=== PATIENT | female | born 1935 | race Two or more races ===

== ENCOUNTER 2024-06-09 14:59 | Inpatient (IN) | payer MEDICAID ==
[~2024-06-09] VITALS: Ht 152.4 cm; Wt 65.8 kg
[2024-06-09 15:26] LABS: BASOPHILS # (AUTO) 0.1 K/UL (0.0-0.2); BASOPHILS % (AUTO) 0.7 % (0.0-2.0); DIFFERENTIAL COMMENT 0; EOSINOPHILS # (AUTO) 0.3 K/uL (0.0-0.7); EOSINOPHILS % (AUTO) 2.3 % (0.0-7.0); HEMATOCRIT 28.8 % (36.7-47.1); HEMOGLOBIN 9.4 g/dL (12.5-16.3); LYMPHOCYTES # (AUTO) 1.9 K/uL (0.8-4.8); LYMPHOCYTES % (AUTO) 16.2 % (20.5-51.5); MEAN CORPUSCULAR HEMOGLOBIN 27.9 uug (23.8-33.4); MEAN CORPUSCULAR HGB CONC 33 g/dL (32.5-36.3); MEAN CORPUSCULAR VOLUME 85.6 fL (73.0-96.2); MONOCYTES # (AUTO) 1.7 K/uL (0.1-1.30); MONOCYTES % (AUTO) 14.2 % (0.0-11.0); NEUTROPHILS # (AUTO) 7.8 K/uL (1.8-8.9); NEUTROPHILS % (AUTO) 66.6 % (38.5-71.5); PLATELET COUNT (AUTO) 285 K/uL (152-348); RED BLOOD CELL COUNT(AUTO) 3.36 MIL/uL (4.06-5.63); RED CELL DISTRIBUTION WIDTH 14.3 % (12.1-16.2); WHITE BLOOD COUNT (AUTO) 11.7 K/uL (3.6-10.2)
[2024-06-09] MEDS ORDERED: methylPREDNISolone SOD SUCC 125 MG/2 ML VIAL ONE (15:37)
[2024-06-09 15:41] LABS: CARBON DIOXIDE 24 mmol/L (21-32); CHLORIDE 108 mmol/L (98-107); CREATININE 1.1 mg/dL (0.6-1.3); GLUCOSE 181 mg/dL (74-106); POTASSIUM 4.3 mmol/L (3.5-5.1); SODIUM SERUM 143 mmol/L (136-145); UREA NITROGEN, BLOOD 23 mg/dL (7-18)
[2024-06-09] MEDS: methylPREDNISolone SOD SUCC 125 MG/2 ML VIAL IV ONE (15:41)
[2024-06-09 15:50] LABS: ALANINE AMINOTRANSFERASE 19 U/L (16-63); ALBUMIN 3.3 g/dL (3.4-5.0); ALKALINE PHOSPHATASE 71 U/L (50-136); ASPARTATE AMINOTRANSFERASE 13 U/L (15-37); BILIRUBIN,DIRECT 0.2 mg/dL (0.0-0.2); BILIRUBIN,TOTAL 0.4 mg/dL (0.2-1.0); NT-PRO BNP 2736 pg/mL (0-125); TOTAL PROTEIN, SERUM 7.1 g/dL (6.4-8.2)
[2024-06-09] MEDS: CIPROFLOXACIN IV 400 MG in PREMIXED 1 EACH IV ONE (16:00)
[2024-06-09] MEDS ORDERED: CIPROFLOXACIN IV 200 ML IV ONE (16:07)
[2024-06-09] MEDS: levoFLOXacin 750 MG/D5W 150 ML PIGGYBACK IV ONE (16:22)
[2024-06-09] MEDS ORDERED: REMEDY ESSENTIAL ZINC PASTE 113 GM TP PRN (17:30)
[2024-06-09] MEDS ORDERED: MAGNESIUM HYDROXIDE 30 ML LIQUID UDC PO PRN (17:30)
[2024-06-09] MEDS ORDERED: ONDANSETRON 4 MG/2 ML VIAL IV PRN (17:30)
[2024-06-09 21:42] VITALS: BP 126/57; TEMP 98; O2SAT 99
[2024-06-09] MEDS: methylPREDNISolone SOD SUCC 125 MG/2 ML VIAL IV SCH (21:43)
[2024-06-09] MEDS ORDERED: levoFLOXacin 500 MG/D5W 100 ML ONE (22:00)
[2024-06-09] MEDS: levoFLOXacin 500 MG/D5W 100 ML IV ONE (22:27)
[2024-06-10 00:20] VITALS: BP 121/57; TEMP 98; O2SAT 96
[2024-06-10 04:13] VITALS: BP 120/60; TEMP 98.3; O2SAT 97
[2024-06-10 06:48] LABS: BASOPHILS % (AUTO) 0.1 % (0.0-2.0); HEMOGLOBIN 9.4 g/dL (10.9-14.3); LYMPHOCYTES # (AUTO) 0.3 K/uL (0.8-4.8); LYMPHOCYTES % (AUTO) 4.5 % (20.5-51.5); MEAN CORPUSCULAR HEMOGLOBIN 28.4 uug (24.7-32.8); MEAN CORPUSCULAR HGB CONC 33 g/dL (32.3-35.6); MEAN CORPUSCULAR VOLUME 85.1 fL (75.5-95.3); MONOCYTES # (AUTO) 0.1 K/uL (0.1-1.30); MONOCYTES % (AUTO) 1.4 % (0.0-11.0); NEUTROPHILS # (AUTO) 6.9 K/uL (1.8-8.9); PLATELET COUNT (AUTO) 293 K/uL (179-408); RED BLOOD CELL COUNT(AUTO) 3.29 MIL/uL (3.63-4.92); RED CELL DISTRIBUTION WIDTH 14.2 % (12.3-17.7); WHITE BLOOD COUNT (AUTO) 7.3 K/uL (3.8-11.8)
[2024-06-10 07:10] LABS: DIFFERENTIAL COMMENT 1
[2024-06-10 07:12] LABS: CARBON DIOXIDE 23 mmol/L (21-32); CHLORIDE 104 mmol/L (98-107); CREATININE 1.8 mg/dL (0.6-1.3); GLUCOSE 265 mg/dL (74-106); PHOSPHOROUS 4.3 mg/dL (2.5-4.9); POTASSIUM 5.3 mmol/L (3.5-5.1); SODIUM SERUM 136 mmol/L (136-145); UREA NITROGEN, BLOOD 37 mg/dL (7-18)
[2024-06-10 07:33] LABS: CALCIUM 7.8 mg/dL (8.5-10.1)
[2024-06-10] MEDS: ACETAMINOPHEN 325 MG TABLET PO PRN (10:36)
[2024-06-10] MEDS ORDERED: DICL75TA5 PO (11:46)
[2024-06-10] MEDS ORDERED: LOSA100T31 PO (11:46)
[2024-06-10] MEDS ORDERED: AMLO-212 PO (11:46)
[2024-06-10] MEDS ORDERED: ALEN70TA3 PO (11:46)
[2024-06-10] MEDS ORDERED: SERT50TA PO (11:46)
[2024-06-10] MEDS ORDERED: HYDR-894 PO (11:46)
[2024-06-10] MEDS ORDERED: FURO40TA5 PO (11:46)
[2024-06-10] MEDS ORDERED: ASPI81TA31 PO (11:46)
[2024-06-10] MEDS ORDERED: levoFLOXacin 500 MG/D5W 500 MG in PREMIXED 1 EACH IV SCH (16:00)
[2024-06-10] MEDS: CIPROFLOXACIN IV 400 MG in PREMIXED 1 EACH IV SCH (16:13)
[2024-06-10 16:56] LABS: CALCIUM 7.3 mg/dL (8.5-10.1); CARBON DIOXIDE 22 mmol/L (21-32); CHLORIDE 105 mmol/L (98-107); CREATININE 2.1 mg/dL (0.6-1.3); GLUCOSE 383 mg/dL (74-106); POTASSIUM 5.9 mmol/L (3.5-5.1); SODIUM SERUM 139 mmol/L (136-145); UREA NITROGEN, BLOOD 49 mg/dL (7-18)
[2024-06-10] MEDS: hydrALAZINE HCL 25 MG TABLET PO SCH (17:35)
[2024-06-10] MEDS: ASPIRIN 81 MG TAB.CHEW PO SCH (17:35)
[2024-06-10] MEDS: AMLODIPINE 5 MG TABLET PO SCH (17:35)
[2024-06-10] MEDS: LOSARTAN POTASSIUM 50 MG TABLET PO SCH (17:35)
[2024-06-10] MEDS ORDERED: FUROSEMIDE 40 MG TABLET PO SCH (18:00)
[2024-06-10 19:30] VITALS: BP 125/62; TEMP 98.3; O2SAT 95
[2024-06-10 22:02] VITALS: BP 125/62; TEMP 98.3; O2SAT 95
[2024-06-11] VITALS (12 sets, daily range): BP systolic 109–133; BP diastolic 42–65; TEMP 97.9–98.9; O2SAT 95–99
[2024-06-11 07:25] LABS: BASOPHILS % (AUTO) 0.1 % (0.0-2.0); HEMATOCRIT 27.2 % (31.2-41.9); HEMOGLOBIN 9.1 g/dL (10.9-14.3); LYMPHOCYTES # (AUTO) 0.4 K/uL (0.8-4.8); MEAN CORPUSCULAR HEMOGLOBIN 28.6 uug (24.7-32.8); MEAN CORPUSCULAR HGB CONC 34 g/dL (32.3-35.6); MEAN CORPUSCULAR VOLUME 85.5 fL (75.5-95.3); MONOCYTES # (AUTO) 0.2 K/uL (0.1-1.30); MONOCYTES % (AUTO) 2.3 % (0.0-11.0); NEUTROPHILS # (AUTO) 8.7 K/uL (1.8-8.9); NEUTROPHILS % (AUTO) 93.6 % (38.5-71.5); PLATELET COUNT (AUTO) 326 K/uL (179-408); RED BLOOD CELL COUNT(AUTO) 3.19 MIL/uL (3.63-4.92); RED CELL DISTRIBUTION WIDTH 14.1 % (12.3-17.7); WHITE BLOOD COUNT (AUTO) 9.3 K/uL (3.8-11.8)
[2024-06-11 07:42] LABS: DIFFERENTIAL COMMENT 1
[2024-06-11 07:44] LABS: ALANINE AMINOTRANSFERASE 20 U/L (14-59); ALKALINE PHOSPHATASE 68 U/L (50-136); ASPARTATE AMINOTRANSFERASE 6 U/L (15-37); BILIRUBIN,TOTAL 0.3 mg/dL (0.2-1.0); CALCIUM 7.5 mg/dL (8.5-10.1); CARBON DIOXIDE 23 mmol/L (21-32); CHLORIDE 105 mmol/L (98-107); CREATININE 1.8 mg/dL (0.6-1.3); GLUCOSE 241 mg/dL (74-106); MAGNESIUM 3.1 mg/dL (1.8-2.4); PHOSPHOROUS 4.6 mg/dL (2.5-4.9); POTASSIUM 5.3 mmol/L (3.5-5.1); SODIUM SERUM 139 mmol/L (136-145); TOTAL PROTEIN, SERUM 7.3 g/dL (6.4-8.2); UREA NITROGEN, BLOOD 55 mg/dL (7-18)
[2024-06-11 08:13] LABS: CREATINE KINASE, TOTAL 59 U/L (26-192)
[2024-06-11] MEDS: ALENDRONATE SODIUM 70 MG TABLET PO SCH (08:13)
[2024-06-11 08:45] LABS: *BILIRUBIN,URIN NEGATIVE (NEGATIVE); *BLOOD, URINE NEGATIVE (NEGATIVE); *CLARITY,URINE CLEAR (CLEAR); *COLOR,URINE YELLOW (YELLOW); *KETONES,URINE NEGATIVE (NEGATIVE); *PROTEIN,URINE 1+ (NEGATIVE); *URINE TOTAL PROTEIN RANDOM 44.7 mg/dL (<150/24HR); *UROBILINOGEN,URINE 0.2 E.U./dl (NORMAL); LEUKOCYTE ESTERASE ,URINE NEGATIVE (NEGATIVE); NITRITE, URINE NEGATIVE (NEGATIVE); UGLUCOSE NEGATIVE (NEGATIVE)
[2024-06-11 08:46] LABS: BACTERIA,URINE FEW /HPF (NONE SEEN); SQUAMOUS EPITHELIAL CELL,UR FEW /HPF (NONE SEEN); WBC,URINE 0-3 /HPF (0-3)
[2024-06-11] MEDS ORDERED: Medication Not On Formulary EA (Losartan Potassium 100 MG) PO SCH (09:00)
[2024-06-11] MEDS: GUAIFENESIN SUGAR FREE 100 MG/5 ML UDC PO PRN (10:37)
[2024-06-11] MEDS: SODIUM POLYSTYRENE SULFONATE 15 G/60 ML LIQUID UDC PO ONE (10:37)
[2024-06-11] MEDS: IPRATROPIUM BROMIDE 0.5 MG/2.5 ML NEBU NEB SCH (11:06)
[2024-06-11] MEDS: ALBUTEROL SULFATE 2.5 MG/3 ML NEBU NEB SCH (11:06)
[2024-06-11] MEDS ORDERED: SODIUM ZIRCONIUM CYCLOSILICATE 10 GM POWD.PACK PO ONE (11:30)
[2024-06-12] VITALS (14 sets, daily range): BP systolic 114–122; BP diastolic 52–59; TEMP 97.5–98.7; O2SAT 93–99
[2024-06-12 05:57] LABS: ABG BASE EXCESS -4.8 mmol/L (-2.0-3.0); ABG HCO3 19.4 mmol/L (21.0-28.0); ABG PCO2 32.2 mmHg (32.0-45.0); ABG PH 7.397 (7.350-7.450); ABG PO2 83.3 mmHg (83.0-108.0); ABG SITE RIGHT RADIAL; ABG TOTAL HEMOGLOBIN 9.5 G/dL (12.0-16.0); AaDO2 96.3 mmHg; COHb 0.3 % (0.5-1.5); MetHb 0.5 % (0.0-1.5); O2Hb 95.1 % (94.0-98.0)
[2024-06-12 07:00] LABS: BASOPHILS % (AUTO) 0.1 % (0.0-2.0); HEMATOCRIT 26.7 % (31.2-41.9); HEMOGLOBIN 8.9 g/dL (10.9-14.3); LYMPHOCYTES # (AUTO) 0.3 K/uL (0.8-4.8); LYMPHOCYTES % (AUTO) 3.4 % (20.5-51.5); MEAN CORPUSCULAR HEMOGLOBIN 28.5 uug (24.7-32.8); MEAN CORPUSCULAR HGB CONC 34 g/dL (32.3-35.6); MEAN CORPUSCULAR VOLUME 85.2 fL (75.5-95.3); MONOCYTES # (AUTO) 0.2 K/uL (0.1-1.30); MONOCYTES % (AUTO) 2.2 % (0.0-11.0); NEUTROPHILS # (AUTO) 7.8 K/uL (1.8-8.9); NEUTROPHILS % (AUTO) 94.3 % (38.5-71.5); PLATELET COUNT (AUTO) 336 K/uL (179-408); RED BLOOD CELL COUNT(AUTO) 3.13 MIL/uL (3.63-4.92); RED CELL DISTRIBUTION WIDTH 14.4 % (12.3-17.7); WHITE BLOOD COUNT (AUTO) 8.3 K/uL (3.8-11.8)
[2024-06-12 07:12] LABS: DIFFERENTIAL COMMENT 1
[2024-06-12 07:16] LABS: CALCIUM 6.9 mg/dL (8.5-10.1); CARBON DIOXIDE 23 mmol/L (21-32); CHLORIDE 103 mmol/L (98-107); GLUCOSE 303 mg/dL (74-106); PHOSPHOROUS 5.6 mg/dL (2.5-4.9); POTASSIUM 4.2 mmol/L (3.5-5.1); SODIUM SERUM 138 mmol/L (136-145); UREA NITROGEN, BLOOD 72 mg/dL (7-18)
[2024-06-12] MEDS: IV NS 1000 ML 1,000 ML IV ONE (10:55)
[2024-06-12] MEDS: methylPREDNISolone SOD SUCC 125 MG/2 ML VIAL IV SCH (13:08)
[2024-06-13] VITALS (18 sets, daily range): BP systolic 119–144; BP diastolic 54–70; TEMP 97.4–98.9; O2SAT 94–100
[2024-06-13 07:25] LABS: HEMOGLOBIN 9.5 g/dL (10.9-14.3); LYMPHOCYTES # (AUTO) 0.3 K/uL (0.8-4.8); LYMPHOCYTES % (AUTO) 3.3 % (20.5-51.5); MEAN CORPUSCULAR HEMOGLOBIN 28.8 uug (24.7-32.8); MEAN CORPUSCULAR HGB CONC 34 g/dL (32.3-35.6); MEAN CORPUSCULAR VOLUME 85.1 fL (75.5-95.3); MONOCYTES # (AUTO) 0.3 K/uL (0.1-1.30); MONOCYTES % (AUTO) 3.6 % (0.0-11.0); NEUTROPHILS # (AUTO) 7.2 K/uL (1.8-8.9); NEUTROPHILS % (AUTO) 93.1 % (38.5-71.5); PLATELET COUNT (AUTO) 345 K/uL (179-408); RED BLOOD CELL COUNT(AUTO) 3.29 MIL/uL (3.63-4.92); RED CELL DISTRIBUTION WIDTH 14.2 % (12.3-17.7); WHITE BLOOD COUNT (AUTO) 7.7 K/uL (3.8-11.8)
[2024-06-13 07:38] LABS: DIFFERENTIAL COMMENT 1
[2024-06-13 07:48] LABS: CALCIUM 6.6 mg/dL (8.5-10.1); CARBON DIOXIDE 23 mmol/L (21-32); CHLORIDE 104 mmol/L (98-107); CREATININE 1.6 mg/dL (0.6-1.3); GLUCOSE 376 mg/dL (74-106); MAGNESIUM 3.1 mg/dL (1.8-2.4); PHOSPHOROUS 5.2 mg/dL (2.5-4.9); POTASSIUM 3.7 mmol/L (3.5-5.1); SODIUM SERUM 139 mmol/L (136-145); UREA NITROGEN, BLOOD 66 mg/dL (7-18)
[2024-06-13 08:06] LABS: PTH, INTACT 115 pg/mL (15-65)
[2024-06-13] MEDS: FUROSEMIDE 40 MG/4 ML VIAL IV ONE (11:58)
[2024-06-13 13:11] LABS: ALBUMIN 3.2 g/dL (2.9-4.4); ALPHA-1-GLOBULIN 0.4 g/dL (0.0-0.4); BETA GLOBULIN 0.9 g/dL (0.7-1.3); GAMMA GLOBULIN 0.9 g/dL (0.4-1.8); GLOBULIN, TOTAL 3.1 g/dL (2.2-3.9); M-SPIKE Not Observed g/dL (Not Observed); PROTEIN, TOTAL 6.3 g/dL (6.0-8.5)
[2024-06-13] MEDS: levoFLOXacin 750 MG TABLET PO ONE (16:03)
[2024-06-13] MEDS: methylPREDNISolone SOD SUCC 40 MG/ML VIAL IV SCH (20:35)
[2024-06-13] MEDS ORDERED: methylPREDNISolone SOD SUCC 125 MG/2 ML VIAL IV SCH (21:00)
[2024-06-14] VITALS (14 sets, daily range): BP systolic 128–143; BP diastolic 56–69; TEMP 97.7–98.2; O2SAT 92–99
[2024-06-14] MEDS: ALBUTEROL SULFATE 2.5 MG/3 ML NEBU NEB PRN (01:20)
[2024-06-14 06:52] LABS: BASOPHILS % (AUTO) 0.1 % (0.0-2.0); HEMATOCRIT 29.3 % (31.2-41.9); HEMOGLOBIN 9.8 g/dL (10.9-14.3); LYMPHOCYTES # (AUTO) 0.2 K/uL (0.8-4.8); LYMPHOCYTES % (AUTO) 1.5 % (20.5-51.5); MEAN CORPUSCULAR HEMOGLOBIN 28.3 uug (24.7-32.8); MEAN CORPUSCULAR HGB CONC 33 g/dL (32.3-35.6); MEAN CORPUSCULAR VOLUME 84.8 fL (75.5-95.3); MONOCYTES # (AUTO) 0.6 K/uL (0.1-1.30); MONOCYTES % (AUTO) 3.9 % (0.0-11.0); NEUTROPHILS # (AUTO) 13.9 K/uL (1.8-8.9); NEUTROPHILS % (AUTO) 94.5 % (38.5-71.5); PLATELET COUNT (AUTO) 378 K/uL (179-408); RED BLOOD CELL COUNT(AUTO) 3.46 MIL/uL (3.63-4.92); RED CELL DISTRIBUTION WIDTH 14.1 % (12.3-17.7); WHITE BLOOD COUNT (AUTO) 14.7 K/uL (3.8-11.8)
[2024-06-14 07:07] LABS: CALCIUM 6.8 mg/dL (8.5-10.1); CARBON DIOXIDE 23 mmol/L (21-32); CHLORIDE 101 mmol/L (98-107); CREATININE 1.7 mg/dL (0.6-1.3); PHOSPHOROUS 4.2 mg/dL (2.5-4.9); POTASSIUM 3.7 mmol/L (3.5-5.1); SODIUM SERUM 139 mmol/L (136-145); UREA NITROGEN, BLOOD 68 mg/dL (7-18)
[2024-06-14 07:11] LABS: DIFFERENTIAL COMMENT 1
[2024-06-14 07:31] LABS: GLUCOSE 401 mg/dL (74-106)
[2024-06-14] MEDS: methylPREDNISolone SOD SUCC 40 MG/ML VIAL IV SCH (08:26)
[2024-06-14] MEDS: SERTRALINE HCL 50 MG TABLET PO PRN (09:10)
[2024-06-14 11:12] LABS: BAND % (MANUAL) 1 % (0-10); LYMPHOCYTES % (MANUAL) 2 % (20-40); MONOCYTES % (MANUAL) 5 % (2-10); MYELOCYTES % 1 % (0-0); NEUTROPHILS % (MANUAL) 91 % (42-75); PLATELET ESTIMATE ADEQUATE
[2024-06-14] MEDS ORDERED: DEXTROSE 50% 50 ML DISP.SYRIN IV PRN (12:00)
[2024-06-14] MEDS ORDERED: levoFLOXacin 750MG/D5W 750 MG in PREMIXED 1 EACH IV SCH (12:00)
[2024-06-14] MEDS: BLOOD SUGAR DIAGNOSTIC 1 EACH STRIP VI SCH (12:07)
[2024-06-14] MEDS: INSULIN REGULAR, HUMAN 1000 UNIT/10 ML VIAL SQ PRN (12:10)
[2024-06-14] MEDS: FUROSEMIDE 40 MG/4 ML VIAL IV ONE (12:21)
[2024-06-14] MEDS: CIPROFLOXACIN IV 400 MG in PREMIXED 1 EACH IV SCH (13:15)
[2024-06-14 20:06] LABS: ADENOVIRUS Not Detected (Not Detected); CORONAVIRUS 229E Not Detected (Not Detected); CORONAVIRUS HKU1 Not Detected (Not Detected); CORONAVIRUS NL63 Not Detected (Not Detected); CORONAVIRUS OC43 Not Detected (Not Detected); NP BORDETELLA PERTUSIS Not Detected (Not Detected); NP CHLAMYDOPHILA PNEUMONIAE Not Detected (Not Detected); NP HUMAN METAPNEUMOVIRUS Not Detected (Not Detected); NP HUMAN RHINO/ENTERO VIRUS Not Detected (Not Detected); NP INFLUENZA A Not Detected (Not Detected); NP INFLUENZA A/H1 Not Detected (Not Detected); NP INFLUENZA A/H1-2009 Not Detected (Not Detected); NP INFLUENZA A/H3 Not Detected (Not Detected); NP INFLUENZA B Not Detected (Not Detected); NP MYCOPLASMA PNEUMONIAE Not Detected (Not Detected); NP PARAINFLUENZA 1 Not Detected (Not Detected); NP PARAINFLUENZA 2 Not Detected (Not Detected); NP PARAINFLUENZA 3 Not Detected (Not Detected); NP PARAINFLUENZA 4 Not Detected (Not Detected); NP RESPIRATORY SYNCYTIAL VIRUS Not Detected (Not Detected)
[2024-06-15] VITALS (13 sets, daily range): BP systolic 107–136; BP diastolic 49–90; TEMP 98.2–98.8; O2SAT 92–99
[2024-06-15 07:33] LABS: BASOPHILS % (AUTO) 0.1 % (0.0-2.0); EOSINOPHILS % (AUTO) 0.1 % (0.0-7.0); HEMATOCRIT 28.5 % (31.2-41.9); HEMOGLOBIN 9.7 g/dL (10.9-14.3); LYMPHOCYTES # (AUTO) 0.5 K/uL (0.8-4.8); LYMPHOCYTES % (AUTO) 3.1 % (20.5-51.5); MEAN CORPUSCULAR HGB CONC 34 g/dL (32.3-35.6); MONOCYTES # (AUTO) 0.8 K/uL (0.1-1.30); MONOCYTES % (AUTO) 4.9 % (0.0-11.0); NEUTROPHILS # (AUTO) 14.6 K/uL (1.8-8.9); NEUTROPHILS % (AUTO) 91.8 % (38.5-71.5); PLATELET COUNT (AUTO) 362 K/uL (179-408); RED BLOOD CELL COUNT(AUTO) 3.35 MIL/uL (3.63-4.92); RED CELL DISTRIBUTION WIDTH 14.7 % (12.3-17.7); WHITE BLOOD COUNT (AUTO) 15.9 K/uL (3.8-11.8)
[2024-06-15] MEDS ORDERED: IPRATROPIUM BROMIDE 0.5 MG/2.5 ML NEBU ONE (07:45)
[2024-06-15] MEDS ORDERED: ALBUTEROL SULFATE 2.5 MG/3 ML NEBU ONE (07:45)
[2024-06-15 07:51] LABS: CALCIUM 6.7 mg/dL (8.5-10.1); CARBON DIOXIDE 24 mmol/L (21-32); CHLORIDE 105 mmol/L (98-107); CREATININE 1.7 mg/dL (0.6-1.3); GLUCOSE 213 mg/dL (74-106); MAGNESIUM 3.3 mg/dL (1.8-2.4); PHOSPHOROUS 5.7 mg/dL (2.5-4.9); SODIUM SERUM 139 mmol/L (136-145); UREA NITROGEN, BLOOD 74 mg/dL (7-18)
[2024-06-15 08:12] LABS: DIFFERENTIAL COMMENT 1
[2024-06-15 10:09] LABS: *BILIRUBIN,URIN NEGATIVE (NEGATIVE); *BLOOD, URINE NEGATIVE (NEGATIVE); *CLARITY,URINE CLEAR (CLEAR); *COLOR,URINE YELLOW (YELLOW); *KETONES,URINE NEGATIVE (NEGATIVE); *PROTEIN,URINE TRACE (NEGATIVE); *UROBILINOGEN,URINE 0.2 E.U./dl (NORMAL); LEUKOCYTE ESTERASE ,URINE NEGATIVE (NEGATIVE); NITRITE, URINE NEGATIVE (NEGATIVE); UGLUCOSE NEGATIVE (NEGATIVE)
[2024-06-15] MEDS ORDERED: levoFLOXacin 750 MG TABLET PO ONE (16:00)
[2024-06-15] MEDS ORDERED: levoFLOXacin 500 MG TABLET PO SCH (16:00)
[2024-06-15 16:27] LABS: ANISOCYTOSIS 1+; HYPOCHROMASIA 1+; LYMPHOCYTES % (MANUAL) 2 % (20-40); MONOCYTES % (MANUAL) 4 % (2-10); NEUTROPHILS % (MANUAL) 94 % (42-75); PLATELET ESTIMATE ADEQUATE
[2024-06-15] MEDS: methylPREDNISolone SOD SUCC 40 MG/ML VIAL IV SCH (21:25)
[2024-06-15] MEDS: INSULIN REGULAR, HUMAN 300 UNITS/3 ML VIAL SQ PRN (21:32)
[2024-06-16] VITALS (21 sets, daily range): BP systolic 118–135; BP diastolic 49–59; TEMP 98.1–99; O2SAT 89–99
[2024-06-16 06:59] LABS: BASOPHILS % (AUTO) 0.2 % (0.0-2.0); HEMATOCRIT 24.9 % (31.2-41.9); HEMOGLOBIN 8.6 g/dL (10.9-14.3); LYMPHOCYTES # (AUTO) 0.5 K/uL (0.8-4.8); MEAN CORPUSCULAR HEMOGLOBIN 29.1 uug (24.7-32.8); MEAN CORPUSCULAR HGB CONC 35 g/dL (32.3-35.6); MEAN CORPUSCULAR VOLUME 84.3 fL (75.5-95.3); MONOCYTES # (AUTO) 0.5 K/uL (0.1-1.30); NEUTROPHILS # (AUTO) 10.7 K/uL (1.8-8.9); NEUTROPHILS % (AUTO) 91.8 % (38.5-71.5); PLATELET COUNT (AUTO) 307 K/uL (179-408); RED BLOOD CELL COUNT(AUTO) 2.96 MIL/uL (3.63-4.92); RED CELL DISTRIBUTION WIDTH 14.4 % (12.3-17.7); WHITE BLOOD COUNT (AUTO) 11.6 K/uL (3.8-11.8)
[2024-06-16 07:11] LABS: DIFFERENTIAL COMMENT 1
[2024-06-16 07:12] LABS: CALCIUM 6.4 mg/dL (8.5-10.1); CARBON DIOXIDE 26 mmol/L (21-32); CHLORIDE 106 mmol/L (98-107); CREATININE 1.5 mg/dL (0.6-1.3); GLUCOSE 222 mg/dL (74-106); MAGNESIUM 3.3 mg/dL (1.8-2.4); PHOSPHOROUS 5.7 mg/dL (2.5-4.9); POTASSIUM 4.3 mmol/L (3.5-5.1); SODIUM SERUM 142 mmol/L (136-145)
[2024-06-16 07:22] LABS: UREA NITROGEN, BLOOD 83 mg/dL (7-18)
[2024-06-16] MEDS: FUROSEMIDE 40 MG/4 ML VIAL IV ONE (08:06)
[2024-06-16 10:51] LABS: LYMPHOCYTES % (MANUAL) 4 % (20-40); MONOCYTES % (MANUAL) 4 % (2-10); NEUTROPHILS % (MANUAL) 92 % (42-75); PLATELET ESTIMATE ADEQUATE
[2024-06-16] MEDS: predniSONE 20 MG TABLET PO SCH (17:24)
[2024-06-17] VITALS (19 sets, daily range): BP systolic 99–126; BP diastolic 45–62; TEMP 97.9–98.5; O2SAT 94–100
[2024-06-17 07:08] LABS: CARBON DIOXIDE 24 mmol/L (21-32); CHLORIDE 105 mmol/L (98-107); CREATININE 1.5 mg/dL (0.6-1.3); GLUCOSE 224 mg/dL (74-106); MAGNESIUM 3.1 mg/dL (1.8-2.4); PHOSPHOROUS 5.6 mg/dL (2.5-4.9); POTASSIUM 4.2 mmol/L (3.5-5.1); SODIUM SERUM 140 mmol/L (136-145)
[2024-06-17 07:12] LABS: BASOPHILS % (AUTO) 0.1 % (0.0-2.0); LYMPHOCYTES # (AUTO) 0.7 K/uL (0.8-4.8); LYMPHOCYTES % (AUTO) 5.1 % (20.5-51.5); MEAN CORPUSCULAR HEMOGLOBIN 28.2 uug (24.7-32.8); MEAN CORPUSCULAR HGB CONC 33 g/dL (32.3-35.6); MEAN CORPUSCULAR VOLUME 84.5 fL (75.5-95.3); MONOCYTES # (AUTO) 0.8 K/uL (0.1-1.30); MONOCYTES % (AUTO) 5.8 % (0.0-11.0); NEUTROPHILS # (AUTO) 12.9 K/uL (1.8-8.9); PLATELET COUNT (AUTO) 282 K/uL (179-408); RED CELL DISTRIBUTION WIDTH 14.6 % (12.3-17.7); WHITE BLOOD COUNT (AUTO) 14.5 K/uL (3.8-11.8)
[2024-06-17 07:22] LABS: DIFFERENTIAL COMMENT 1; HEMATOCRIT 19.1 % (31.2-41.9); HEMOGLOBIN 6.4 g/dL (10.9-14.3); RED BLOOD CELL COUNT(AUTO) 2.26 MIL/uL (3.63-4.92)
[2024-06-17 07:27] LABS: UREA NITROGEN, BLOOD 99 mg/dL (7-18)
[2024-06-17] MEDS: PANTOPRAZOLE SODIUM 40 MG VIAL IV SCH (09:52)
[2024-06-17 10:34] LABS: HEMATOCRIT 19.4 % (31.2-41.9); HEMOGLOBIN 6.4 g/dL (10.9-14.3)
[2024-06-17 14:41] LABS: BAND % (MANUAL) 10 % (0-10); LYMPHOCYTES % (MANUAL) 5 % (20-40); MONOCYTES % (MANUAL) 6 % (2-10); NEUTROPHILS % (MANUAL) 75 % (42-75)
[2024-06-17 14:42] LABS: ANISOCYTOSIS 1+; METAMYELOCYTES % 4 % (0-1); PLATELET ESTIMATE ADEQUATE
[2024-06-17 16:21] LABS: *OCCULT BLOOD STOOL POSITIVE (NEGATIVE)
[2024-06-18] VITALS (11 sets, daily range): BP systolic 88–128; BP diastolic 49–65; TEMP 97.5–98.5; O2SAT 94–98
[2024-06-18] MEDS: ALENDRONATE SODIUM 70 MG TABLET PO SCH (05:44)
[2024-06-18 07:27] LABS: BASOPHILS % (AUTO) 0.1 % (0.0-2.0); EOSINOPHILS % (AUTO) 0.1 % (0.0-7.0); LYMPHOCYTES # (AUTO) 1.4 K/uL (0.8-4.8); LYMPHOCYTES % (AUTO) 7.8 % (20.5-51.5); MEAN CORPUSCULAR HEMOGLOBIN 28.2 uug (24.7-32.8); MEAN CORPUSCULAR HGB CONC 33 g/dL (32.3-35.6); MEAN CORPUSCULAR VOLUME 86.2 fL (75.5-95.3); MONOCYTES # (AUTO) 1.3 K/uL (0.1-1.30); MONOCYTES % (AUTO) 7.2 % (0.0-11.0); NEUTROPHILS # (AUTO) 15.1 K/uL (1.8-8.9); NEUTROPHILS % (AUTO) 84.8 % (38.5-71.5); PLATELET COUNT (AUTO) 252 K/uL (179-408); RED CELL DISTRIBUTION WIDTH 15.2 % (12.3-17.7); WHITE BLOOD COUNT (AUTO) 17.8 K/uL (3.8-11.8)
[2024-06-18 08:17] LABS: CARBON DIOXIDE 21 mmol/L (21-32); CHLORIDE 106 mmol/L (98-107); CREATININE 1.4 mg/dL (0.6-1.3); GLUCOSE 198 mg/dL (74-106); MAGNESIUM 3.3 mg/dL (1.8-2.4); PHOSPHOROUS 5.5 mg/dL (2.5-4.9); POTASSIUM 4.4 mmol/L (3.5-5.1); SODIUM SERUM 140 mmol/L (136-145)
[2024-06-18 08:41] LABS: DIFFERENTIAL COMMENT 1; HEMOGLOBIN 6.9 g/dL (10.9-14.3); RED BLOOD CELL COUNT(AUTO) 2.44 MIL/uL (3.63-4.92)
[2024-06-18 08:58] LABS: UREA NITROGEN, BLOOD 105 mg/dL (7-18)
[2024-06-18 13:49] LABS: LYMPHOCYTES % (MANUAL) 0 % (20-40); NEUTROPHILS % (MANUAL) 0 % (42-75)
[2024-06-19] VITALS (18 sets, daily range): BP systolic 102–127; BP diastolic 44–50; TEMP 97.7–98.7; O2SAT 92–98
[2024-06-19 07:05] LABS: BASOPHILS % (AUTO) 0.1 % (0.0-2.0); EOSINOPHILS # (AUTO) 0.2 K/uL (0.0-0.7); EOSINOPHILS % (AUTO) 0.9 % (0.0-7.0); LYMPHOCYTES # (AUTO) 1.7 K/uL (0.8-4.8); LYMPHOCYTES % (AUTO) 9.6 % (20.5-51.5); MEAN CORPUSCULAR HEMOGLOBIN 29.1 uug (24.7-32.8); MEAN CORPUSCULAR HGB CONC 34 g/dL (32.3-35.6); MONOCYTES # (AUTO) 1.2 K/uL (0.1-1.30); NEUTROPHILS # (AUTO) 14.4 K/uL (1.8-8.9); NEUTROPHILS % (AUTO) 82.4 % (38.5-71.5); PLATELET COUNT (AUTO) 196 K/uL (179-408); RED CELL DISTRIBUTION WIDTH 14.5 % (12.3-17.7); WHITE BLOOD COUNT (AUTO) 17.5 K/uL (3.8-11.8)
[2024-06-19 07:31] LABS: CARBON DIOXIDE 22 mmol/L (21-32); CHLORIDE 107 mmol/L (98-107); CREATININE 1.3 mg/dL (0.6-1.3); GLUCOSE 111 mg/dL (74-106); MAGNESIUM 3.4 mg/dL (1.8-2.4); PHOSPHOROUS 5.6 mg/dL (2.5-4.9); POTASSIUM 4.4 mmol/L (3.5-5.1); SODIUM SERUM 140 mmol/L (136-145)
[2024-06-19 07:33] LABS: RED BLOOD CELL COUNT(AUTO) 2.36 MIL/uL (3.63-4.92)
[2024-06-19 07:34] LABS: DIFFERENTIAL COMMENT 1
[2024-06-19 07:36] LABS: HEMATOCRIT 20.3 % (31.2-41.9); HEMOGLOBIN 6.8 g/dL (10.9-14.3)
[2024-06-19 07:48] LABS: CALCIUM 5.9 mg/dL (8.5-10.1); UREA NITROGEN, BLOOD 106 mg/dL (7-18)
[2024-06-19] MEDS: predniSONE 20 MG TABLET PO SCH (08:44)
[2024-06-19 10:18] LABS: BAND % (MANUAL) 1 % (0-10); LYMPHOCYTES % (MANUAL) 9 % (20-40); METAMYELOCYTES % 3 % (0-1); MONOCYTES % (MANUAL) 3 % (2-10); MYELOCYTES % 1 % (0-0); NEUTROPHILS % (MANUAL) 83 % (42-75); PLATELET ESTIMATE ADEQUATE
[2024-06-19 21:29] LABS: HEMATOCRIT 22.5 % (31.2-41.9); HEMOGLOBIN 7.6 g/dL (10.9-14.3)
[2024-06-20] VITALS (18 sets, daily range): BP systolic 120–137; BP diastolic 48–58; TEMP 97.3–98.6; O2SAT 96–100
[2024-06-20 06:51] LABS: BASOPHILS % (AUTO) 0.1 % (0.0-2.0); EOSINOPHILS # (AUTO) 0.4 K/uL (0.0-0.7); HEMATOCRIT 23.6 % (31.2-41.9); HEMOGLOBIN 7.9 g/dL (10.9-14.3); LYMPHOCYTES # (AUTO) 1.4 K/uL (0.8-4.8); LYMPHOCYTES % (AUTO) 7.6 % (20.5-51.5); MEAN CORPUSCULAR HEMOGLOBIN 29.5 uug (24.7-32.8); MEAN CORPUSCULAR HGB CONC 34 g/dL (32.3-35.6); MEAN CORPUSCULAR VOLUME 87.7 fL (75.5-95.3); MONOCYTES # (AUTO) 1.4 K/uL (0.1-1.30); MONOCYTES % (AUTO) 7.7 % (0.0-11.0); NEUTROPHILS # (AUTO) 15.1 K/uL (1.8-8.9); NEUTROPHILS % (AUTO) 82.6 % (38.5-71.5); PLATELET COUNT (AUTO) 167 K/uL (179-408); RED BLOOD CELL COUNT(AUTO) 2.69 MIL/uL (3.63-4.92); RED CELL DISTRIBUTION WIDTH 14.3 % (12.3-17.7); WHITE BLOOD COUNT (AUTO) 18.3 K/uL (3.8-11.8)
[2024-06-20 07:06] LABS: DIFFERENTIAL COMMENT 1
[2024-06-20 07:08] LABS: CARBON DIOXIDE 24 mmol/L (21-32); CHLORIDE 109 mmol/L (98-107); CREATININE 1.1 mg/dL (0.6-1.3); GLUCOSE 162 mg/dL (74-106); MAGNESIUM 3.2 mg/dL (1.8-2.4); PHOSPHOROUS 4.4 mg/dL (2.5-4.9); POTASSIUM 3.9 mmol/L (3.5-5.1); SODIUM SERUM 143 mmol/L (136-145); UREA NITROGEN, BLOOD 67 mg/dL (7-18)
[2024-06-20 07:11] LABS: CALCIUM 5.8 mg/dL (8.5-10.1)
[2024-06-20] MEDS: NEPRO (VANILLA) 237 ML CAN PO SCH (09:01)
[2024-06-20 09:45] LABS: HEMATOCRIT 23.5 % (31.2-41.9); HEMOGLOBIN 7.9 g/dL (10.9-14.3)
[2024-06-20] MEDS ORDERED: LIDOCAINE 4% TOPICAL 50 ML BOTTLE ONE (18:25)
[2024-06-20] MEDS ORDERED: FLUCONAZOLE 200 MG/100 ML PIGGYBACK ONE (21:14)
[2024-06-20] MEDS: FLUCONAZOLE 200 MG/NS 100ML IV 200 MG in PREMIXED 1 EACH IV SCH (21:27)
[2024-06-21] VITALS (13 sets, daily range): BP systolic 123–139; BP diastolic 49–54; TEMP 97.8–98; O2SAT 95–100
[2024-06-21 00:26] LABS: HEMATOCRIT 25.4 % (31.2-41.9); HEMOGLOBIN 8.6 g/dL (10.9-14.3)
[2024-06-21 06:10] LABS: *BILIRUBIN,URIN 2+ (NEGATIVE); *BLOOD, URINE 3+ (NEGATIVE); *CLARITY,URINE TURBID (CLEAR); *COLOR,URINE Brown (YELLOW); *KETONES,URINE TRACE (NEGATIVE); *PROTEIN,URINE 2+ (NEGATIVE); LEUKOCYTE ESTERASE ,URINE 3+ (NEGATIVE); NITRITE, URINE NEGATIVE (NEGATIVE); UGLUCOSE NEGATIVE (NEGATIVE)
[2024-06-21 06:16] LABS: BACTERIA,URINE MANY /HPF (NONE SEEN); SQUAMOUS EPITHELIAL CELL,UR FEW /HPF (NONE SEEN); WBC,URINE 20-50 /HPF (0-3)
[2024-06-21 06:17] LABS: MUCUS,URINE MANY /LPF (0-FEW)
[2024-06-21 07:06] LABS: BASOPHILS % (AUTO) 0.1 % (0.0-2.0); EOSINOPHILS # (AUTO) 0.1 K/uL (0.0-0.7); EOSINOPHILS % (AUTO) 0.8 % (0.0-7.0); HEMATOCRIT 26.5 % (31.2-41.9); HEMOGLOBIN 8.7 g/dL (10.9-14.3); LYMPHOCYTES # (AUTO) 1.2 K/uL (0.8-4.8); LYMPHOCYTES % (AUTO) 6.7 % (20.5-51.5); MEAN CORPUSCULAR HEMOGLOBIN 29.2 uug (24.7-32.8); MEAN CORPUSCULAR HGB CONC 33 g/dL (32.3-35.6); MEAN CORPUSCULAR VOLUME 88.9 fL (75.5-95.3); MONOCYTES # (AUTO) 1.1 K/uL (0.1-1.30); MONOCYTES % (AUTO) 6.6 % (0.0-11.0); NEUTROPHILS # (AUTO) 14.7 K/uL (1.8-8.9); NEUTROPHILS % (AUTO) 85.8 % (38.5-71.5); PLATELET COUNT (AUTO) 154 K/uL (179-408); RED BLOOD CELL COUNT(AUTO) 2.98 MIL/uL (3.63-4.92); RED CELL DISTRIBUTION WIDTH 15.1 % (12.3-17.7); WHITE BLOOD COUNT (AUTO) 17.2 K/uL (3.8-11.8)
[2024-06-21 07:33] LABS: DIFFERENTIAL COMMENT 1
[2024-06-21 08:14] LABS: ALANINE AMINOTRANSFERASE 16 U/L (14-59); ALBUMIN 2.4 g/dL (3.4-5.0); ALKALINE PHOSPHATASE 43 U/L (50-136); ASPARTATE AMINOTRANSFERASE 22 U/L (15-37); BILIRUBIN,DIRECT 0.1 mg/dL (0.0-0.2); BILIRUBIN,TOTAL 0.3 mg/dL (0.2-1.0); CALCIUM 6.3 mg/dL (8.5-10.1); CARBON DIOXIDE 22 mmol/L (21-32); CHLORIDE 114 mmol/L (98-107); CREATININE 0.9 mg/dL (0.6-1.3); GLUCOSE 124 mg/dL (74-106); MAGNESIUM 3.3 mg/dL (1.8-2.4); PHOSPHOROUS 3.8 mg/dL (2.5-4.9); POTASSIUM 4.1 mmol/L (3.5-5.1); SODIUM SERUM 143 mmol/L (136-145); TOTAL PROTEIN, SERUM 5.1 g/dL (6.4-8.2); UREA NITROGEN, BLOOD 47 mg/dL (7-18)
[2024-06-21] MEDS ORDERED: predniSONE 20 MG TABLET PO SCH (09:00)
[2024-06-21] MEDS: predniSONE 10 MG TABLET PO SCH (09:59)
[2024-06-21] MEDS ORDERED: CEFTRIAXONE 1 G in IV DEXTROSE 5% 50 ML IV SCH (11:45)
[2024-06-21 12:15] LABS: HEMATOCRIT 26.9 % (31.2-41.9); HEMOGLOBIN 8.6 g/dL (10.9-14.3)
[2024-06-21 12:33] LABS: LYMPHOCYTES % (MANUAL) 7 % (20-40); MONOCYTES % (MANUAL) 7 % (2-10); NEUTROPHILS % (MANUAL) 86 % (42-75)
[2024-06-21 12:34] LABS: PLATELET ESTIMATE ADEQUATE
[2024-06-21] MEDS: SULFAMETH/TRIMETH 800/160 MG TABLET PO SCH (12:39)
[2024-06-21 18:22] LABS: HEMATOCRIT 24.8 % (31.2-41.9); HEMOGLOBIN 8.2 g/dL (10.9-14.3)
[2024-06-22] VITALS (8 sets, daily range): BP systolic 111–134; BP diastolic 41–80; TEMP 97–98.1; O2SAT 97–99
[2024-06-22] MEDS ORDERED: FLUC200T PO (12:33)
[2024-06-22] MEDS ORDERED: PRED20TA PO (12:33)
[2024-06-22] MEDS ORDERED: NYST50002 PO (12:33)
[2024-06-22] MEDS ORDERED: PANT40TA2 PO (12:34)
== END 2024-06-22 15:19 | disposition hospice, home (50) | DRG 140 ==
LOC: EDSEX 14:59 → ER 14:59 → TELE3 20:26 → MEDSURG3 06-16 10:24
PROVIDERS: ADMIT Internal Medicine; ATTEND Internal Medicine
PROC: 30233N1 Transfusion of Nonautologous Red Blood Cells into Peripheral Vein, Percutaneous Approach (ICD-10-PCS; principal; 2024-06-17)
PROC: 0DB68ZX Excision of Stomach, Via Natural or Artificial Opening Endoscopic, Diagnostic (ICD-10-PCS; 2024-06-20)
DX: J44.1 Chronic obstructive pulmonary disease with (acute) exacerbation (principal); J96.01 Acute respiratory failure with hypoxia; N17.0 Acute kidney failure with tubular necrosis; I50.33 Acute on chronic diastolic (congestive) heart failure; E44.0 Moderate protein-calorie malnutrition; B37.81 Candidal esophagitis; E83.51 Hypocalcemia; D62 Acute posthemorrhagic anemia; K22.89 Other specified disease of esophagus; K29.70 Gastritis, unspecified, without bleeding; I13.0 Hypertensive heart and chronic kidney disease with heart failure and stage 1 through stage 4 chronic kidney disease, or unspecified chronic kidney disease; E11.22 Type 2 diabetes mellitus with diabetic chronic kidney disease; N18.9 Chronic kidney disease, unspecified; N28.89 Other specified disorders of kidney and ureter; I45.10 Unspecified right bundle-branch block; Z66 Do not resuscitate; Z53.20 Procedure and treatment not carried out because of patient's decision for unspecified reasons; Z79.83 Long term (current) use of bisphosphonates; Z79.899 Other long term (current) drug therapy; Z88.0 Allergy status to penicillin; Z99.81 Dependence on supplemental oxygen; D69.6 Thrombocytopenia, unspecified; E78.5 Hyperlipidemia, unspecified; E87.5 Hyperkalemia; I25.10 Atherosclerotic heart disease of native coronary artery without angina pectoris; I27.20 Pulmonary hypertension, unspecified; M89.8X9 Other specified disorders of bone, unspecified site; N32.3 Diverticulum of bladder; N39.0 Urinary tract infection, site not specified; J44.0 Chronic obstructive pulmonary disease with (acute) lower respiratory infection; J22 Unspecified acute lower respiratory infection
CPT/HCPCS: 36415; 36600; 70030-TC; 71045; 71250; 76775; 82803; 83010; 83605; 83615; 83735; 83970; 84100; 84155; 84165; 84300; 84484; 85018; 85025; 85610; 86140; 86850; 86900; 86901; 86920; 87040; 93307; 94640; 94664; 94760; A4606; A4663; G0378; J0744; J1450; J1815; J1940; J1956; J2470; J2919; J3590; J7040; J7512; J8499; P9016